=== PATIENT | male | born 1975 | race Caucasian/White ===

== ENCOUNTER → 2019-01-23 | Outpatient (CLI) | payer OTHER | LOC: CAT 08:47 | DX: Z13.6 Encounter for screening for cardiovascular disorders (principal); E78.00 Pure hypercholesterolemia, unspecified; I25.10 Atherosclerotic heart disease of native coronary artery without angina pectoris ==

== ENCOUNTER → 2019-03-09 | Outpatient (CLI) | payer BC | LOC: RAD 10:01 | DX: M43.8X4 Other specified deforming dorsopathies, thoracic region (principal); R10.11 Right upper quadrant pain ==

== ENCOUNTER → 2019-12-25 | Outpatient (CLI) | payer BC | LOC: MRI 09:19 | PROVIDERS: ATTEND Family Medicine | DX: R10.11 Right upper quadrant pain (principal) ==